=== PATIENT | male | born 1975 | race Caucasian/White ===

== ENCOUNTER 2017-05-14 20:28 | Emergency (ER) | payer MEDICAID, SELFPAY | END 2017-05-14 22:04 | disposition home or self-care (01) | LOC: ERS 20:28 | DX: J11.1 Influenza due to unidentified influenza virus with other respiratory manifestations (principal); F17.210 Nicotine dependence, cigarettes, uncomplicated | CPT/HCPCS: 99283 ==

== ENCOUNTER 2018-05-17 14:25 | Emergency (ER) | payer MEDICAID, OTHER ==
[2018-05-17 14:59] LABS: Bilirubin Negative (Negative); Blood, Urine Negative (Negative); Clarity CLEAR (Clear); Glucose, Urine (Dipstick) Negative (Negative); Leukocyte Negative (Negative); Nitrite Negative (Negative); Protein, Urine (Dipstick) Negative (Neg-Trace); Specific Gravity, Urine 1.018 (1.002-1.036); Urobilinogen 0.2 mg/dL (0.2-1.0); pH, Urine 6.5 (5.0-9.0)
[2018-05-17 14:59] LABS: #Basophils 0.1 thou/uL (0.0-0.2); #Eosinphils 0.2 thou/uL (0.0-0.7); #Lymphocytes 3.3 thou/uL (1.20-3.40); #Monocytes 0.9 thou/uL (0.11-0.59); #Neutrophils 4.3 thou/uL (1.40-6.50); %Basophils 1.3 % (0.0-1.0); %Eosinophils 2.5 % (0.0-10.0); %Lymphocytes 36.9 % (21.0-51.0); %Monocytes 10.4 % (0.0-10.0); %Neutrophils 48.9 % (42.0-75.0); Hemoglobin 16.6 g/dL (14.0-18.0); Mean Corpuscular Hemoglobin 30.7 pg (27.0-31.0); Mean Platelet Volume 9.6 fL (7.4-10.4); Platelet Count 168 thou/uL (130-400); RBC Distribution Width 12.4 % (11.5-14.5); White Blood Cell (WBC) Count 8.9 thou/uL (4.8-10.8)
[2018-05-17 15:08] LABS: Amphetamine Detected (NotDetected); Barbiturates Screen Not Detected (NotDetected); Benzodiazepine Screen Not Detected (NotDetected); Cocaine Metabolite Screen Not Detected (NotDetected); Medtox Control Line Valid? VALID (VALID); Medtox Reader # READER 4; Methadone Not Detected (NotDetected); Methamphetamine Not Detected (NotDetected); Opiate Screen Not Detected (NotDetected); Oxycodone Screen Not Detected (NotDetected); Phencyclidine (PCP) Not Detected (NotDetected); THC/Cannabinoid Screen Not Detected (NotDetected); Tricyclic Screen Not Detected (NotDetected)
[2018-05-17 15:19] LABS: ALT (SGPT) 27 U/L (8-55); AST (SGOT) 23 U/L (5-34); Acetaminophen Less than 6.0 mcg/mL (10.0-30.0); Albumin 4.5 g/dL (3.5-5.0); Alcohol Less than 10 mg/dL (Less than 10); Alkaline Phosphatase 65 U/L (40-150); Anion Gap 13 mmol/L (10-20); BUN (Urea Nitrogen) 11 mg/dL (8.9-20.6); Bilirubin, Total 0.2 mg/dL (0.2-1.2); CK (CPK) 211 U/L (30-200); Calc. Creatinine Clearance 0 mL/min (70-130); Calcium 9.5 mg/dL (7.8-10.44); Carbon Dioxide 27 mmol/L (22-29); Chloride 104 mmol/L (98-107); Estimated GFR-MDRD 64; Globulin 2.7 g/dL (2.4-3.5); Glucose 91 mg/dL (70-105); Protein, Total 7.2 g/dL (6.0-8.3); Salicylate Less than 8.0 mg/dL (15.0-30.0); Sodium 140 mmol/L (136-145)
[2018-05-17] MEDS ORDERED: hydrOXYzine 25 MG TAB ONE (18:46)
== END 2018-05-17 18:51 | disposition home or self-care (01) ==
LOC: ERS 14:25
DX: F43.9 Reaction to severe stress, unspecified (principal); F17.210 Nicotine dependence, cigarettes, uncomplicated
CPT/HCPCS: 36415; 80053; 80306; 80307; 81003; 82550; 84443; 85025; 93005

== ENCOUNTER 2019-06-22 13:01 | Emergency (ER) | payer OTHER, SELFPAY ==
[2019-06-22 13:36] LABS: #Eosinphils 0.1 thou/uL (0.0-0.7); #Lymphocytes 1.9 thou/uL (1.20-3.40); #Monocytes 1.1 thou/uL (0.11-0.59); #Neutrophils 6.9 thou/uL (1.40-6.50); %Basophils 0.1 % (0.0-1.0); %Eosinophils 1.1 % (0.0-10.0); %Lymphocytes 19.2 % (21.0-51.0); %Monocytes 11.2 % (0.0-10.0); %Neutrophils 68.4 % (42.0-75.0); Hemoglobin 15.4 g/dL (14.0-18.0); Mean Corpuscular HGB CONC 33.7 g/dL (32.0-36.0); Mean Corpuscular Volume 91.9 fL (78.0-98.0); Mean Platelet Volume 9.4 fL (7.4-10.4); Platelet Count 208 thou/uL (130-400); RBC Distribution Width 12.9 % (11.5-14.5); Red Blood Cell (RBC) Count 4.98 mill/uL (4.70-6.10)
[2019-06-22 13:59] LABS: ALT (SGPT) 36 U/L (8-55); AST (SGOT) 20 U/L (5-34); Alkaline Phosphatase 84 U/L (40-110); Anion Gap 13 mmol/L (10-20); BUN (Urea Nitrogen) 12 mg/dL (8.9-20.6); Bilirubin, Total 0.3 mg/dL (0.2-1.2); Calc. Creatinine Clearance 0 mL/min (70-130); Calcium 9.3 mg/dL (7.8-10.44); Carbon Dioxide 24 mmol/L (22-29); Chloride 104 mmol/L (98-107); Estimated GFR-MDRD 70; Glucose 222 mg/dL (70-105); Potassium 3.6 mmol/L (3.5-5.1); Sodium 137 mmol/L (136-145)
[2019-06-22 14:57] LABS: Bacteria/HPF 3+ HPF (None Seen); Bilirubin Negative (Negative); Blood, Urine 3+ (Negative); Clarity Turbid (Clear); Glucose, Urine (Dipstick) Greater than 1000 mg/dL (Negative); Leukocyte 25 Leu/uL (Negative); Nitrite Negative (Negative); Protein, Urine (Dipstick) 50 mg/dL (Neg-Trace); RBC/HPF Greater than 50 HPF (0-3); Squamous Epithelial None Seen HPF (0-3); Urobilinogen 3 mg/dL (Less than 2); WBC/HPF 0-3 HPF (0-3)
[2019-06-22] MEDS ORDERED: Ketorolac Tromethamine 30 MG/ML VIAL ONE (15:13)
[2019-06-22] MEDS ORDERED: Fentanyl 100 MCG/2 ML VIAL ONE (15:13)
--- NOTE | 2019-06-22 15:25 | CT ---
CT ABDOMEN AND PELVIS WITHOUT CONTRAST: HISTORY: Left flank pain. FINDINGS: Absence of oral and IV contrast reduces the sensitive of the exam, particularly for evaluation of master id organs involved. There are mild atelectatic changes in the left lung base. No free air or free f luid is seen in the abdomen or pelvis. Appendix is normal. No calcified gallstones are seen. There are vascular calcifications without evidence of aneurysmal dilatation of the abdominal aorta. There is a tiny calculus in the inferior pole of the right kidney. No calculi are seen in the left k [place] or the right ureter. There is a 10 mm calculus at the left UVJ with ipsilateral mild to modera te hydroureteral nephrosis. There is no falling of the calculus into the urinary bladder on prone im ages. There are degenerative changes in the spine. IMPRESSION: 1. Nonobstructing tiny right renal calculus. 2. Left-sided obstructive uropathy due to a 3 mm ureterovesical junction calculus. POS: OFF
== END 2019-06-22 16:02 | disposition home or self-care (01) ==
LOC: ERS 13:01
DX: N13.2 Hydronephrosis with renal and ureteral calculous obstruction (principal); F17.210 Nicotine dependence, cigarettes, uncomplicated
CPT/HCPCS: 36415; 74176; 80053; 81003; 81015; 83690; 85025; 87077; 87086; 87186; 87804; 96361; 96374; 96375; J1885; J3010

== ENCOUNTER 2019-06-23 22:42 | Inpatient (IN) | payer SELFPAY ==
[2019-06-24] MEDS ORDERED: cefTRIAXone\\ROCEPHIN 2 GM VIAL ONE (00:34)
[2019-06-24] MEDS ORDERED: Ketorolac Tromethamine 30 MG/ML VIAL ONE (00:34)
[2019-06-24] MEDS ORDERED: Ondansetron PF 4 MG/2 ML Vial ONE (00:34)
[2019-06-24 00:46] LABS: #Lymphocytes 1.2 thou/uL (1.20-3.40); #Monocytes 1.8 thou/uL (0.11-0.59); #Neutrophils 14.1 thou/uL (1.40-6.50); %Basophils 0.3 % (0.0-1.0); %Eosinophils 0.1 % (0.0-10.0); %Monocytes 10.6 % (0.0-10.0); %Neutrophils 82.1 % (42.0-75.0); Hemoglobin 14.4 g/dL (14.0-18.0); Mean Corpuscular HGB CONC 33.6 g/dL (32.0-36.0); Mean Corpuscular Hemoglobin 30.9 pg (27.0-31.0); Mean Corpuscular Volume 91.9 fL (78.0-98.0); Mean Platelet Volume 8.6 fL (7.4-10.4); Platelet Count 173 thou/uL (130-400); RBC Distribution Width 13.1 % (11.5-14.5); Red Blood Cell (RBC) Count 4.65 mill/uL (4.70-6.10); White Blood Cell (WBC) Count 17.1 thou/uL (4.8-10.8)
[2019-06-24 01:06] LABS: ALT (SGPT) 46 U/L (8-55); AST (SGOT) 27 U/L (5-34); Albumin 3.7 g/dL (3.5-5.0); Alkaline Phosphatase 113 U/L (40-110); Anion Gap 15 mmol/L (10-20); BUN (Urea Nitrogen) 12 mg/dL (8.9-20.6); Bilirubin, Total 1.3 mg/dL (0.2-1.2); Calc. Creatinine Clearance 0 mL/min (70-130); Calcium 9.2 mg/dL (7.8-10.44); Carbon Dioxide 24 mmol/L (22-29); Chloride 98 mmol/L (98-107); Estimated GFR-MDRD 76; Glucose 130 mg/dL (70-105); Potassium 3.5 mmol/L (3.5-5.1); Protein, Total 6.7 g/dL (6.0-8.3); Sodium 133 mmol/L (136-145)
[2019-06-24 01:15] LABS: Bacteria/HPF 2+ HPF (None Seen); Bilirubin Negative (Negative); Blood, Urine 2+ (Negative); Clarity Turbid (Clear); Glucose, Urine (Dipstick) Normal (Negative); Leukocyte 500 Leu/uL (Negative); Nitrite Negative (Negative); Protein, Urine (Dipstick) 30 mg/dL (Neg-Trace); Squamous Epithelial 0-3 HPF (0-3); Urobilinogen 12 mg/dL (Less than 2); WBC/HPF Greater than 50 HPF (0-3)
[2019-06-24] MEDS ORDERED: Acetaminophen 500 MG TAB ONE (02:26)
--- NOTE | 2019-06-24 06:44 | CT ---
PRELIMINARY REPORT/[facility]/EMERGENCY AFTER HOURS PROCEDURE: EXAM: CT Abdomen and Pelvis Without Intravenous Contrast CLINICAL HISTORY: [id number] presents to the ER with c/o possible medication reaction today. Pt reports he took a tylenol 3 to night and then had shaking and fever. Pt reports he has had fever since but today he had fev er at 104, chills, shaking, and [place]. Denies vomiting, left flank pain today, diarrhea, or h/o kidney s tones prior to today. 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 COMPARISON: None provided. FINDINGS: LUNG BASES: Dependent hypoventilatory changes and linear atelectasis/scarring in the visualized lung bases. Age-indeterminate moderate elevation of the left hemidiaphragm. LIVER: Enlarged. Steatosis. GALLBLADDER AND BILE DUCTS: No calcified gallstone. No biliary ductal dilation. PANCREAS: Unremarkable. SPLEEN: Enlarged. ADRENAL GLANDS: Mild fullness of the left adrenal gland, possibly reflecting hyperplasia. KIDNEYS, URETERS, AND BLADDER: Mild left hydronephrosis with perinephric stranding/edema. No obstruct ing right opaque renal calculus is seen. Nonspecific left upper pole cortical defect and calcificatio n, possibly sequela of prior infection/infarct. Moderate urinary bladder wall thickening. No right hy dronephrosis. Tiny nonobstructing right renal calculus. STOMACH AND BOWEL: No evidence of bowel obstruction. Mild fecal retention. APPENDIX: Normal appendix. PERITONEUM: No free air or sizable fluid collection. LYMPH NODES: Numerous nonspecific top normal size mesenteric lymph nodes, possibly reactive in etiolo gy. VASCULATURE: Mild aortoiliac atherosclerotic calcifications. ABDOMINAL WALL AND SOFT TISSUES: Small fat-containing inguinal hernias. BONES: Advanced thoracolumbar spondylosis. IMPRESSION: 1. Mild left hydronephrosis, left perinephric stranding, and moderate urinary bladder wall thickening , suspicious for acute pyelonephritis. No perinephric abscess. 2. Mild nonobstructing right nephrolithiasis. 3. Age-indeterminate moderate elevation of the left hemidiaphragm. 4. Hepatosplenomegaly. ELECTRONICALLY SIGNED BY: Mick Alfaro MD Jun 24, 2019 1:59:05 AM [facility] This report is intended for review by the ordering physician only, in accordance of law. If you recei ve this report in error, please call [facility] at [phone]. FINAL REPORT EMERGENCY AFTER HOURS CT ABDOMEN AND PELVIS WITHOUT CONTRAST: Date: 06/24/2019 FINDINGS/IMPRESSION: I agree with the findings and impression given in the preliminary report per [facility] physici an. There is stranding change surrounding the left kidney and ureter. This could be secondary to a recent ly passed stone or ascending urinary tract infection.
[2019-06-24] MEDS ORDERED: Acetaminophen 325 MG TAB PO PRN ×2 (12:39→13:32)
[2019-06-24 13:05] VITALS: BMI 31.5
[2019-06-24] MEDS ORDERED: Ondansetron PF 4 MG/2 ML Vial IVP PRN (13:31)
[2019-06-24] MEDS ORDERED: HYDROcodone/Acetaminophen 5/325 mg Tablet PO PRN ×2 (13:32→13:33)
[2019-06-24] MEDS ORDERED: Ondansetron ODT 4 MG TAB PO PRN (13:32)
[2019-06-24] MEDS ORDERED: Sodium Chloride 0.9% 1,000 ML IV SCH (13:45)
--- NOTE | 2019-06-24 16:17 | PDOC.HHP ---
Hospitalist HPI - History of Present Illness fever History of Present Illness: This is a 43 year old male with no past medical history who presented to the ER with fever. The patient states Saturday he came to the ER due to severe abdominal pain. He had a CT abdomen which showed left sided obstructive uropathy due to 3 mm ureterovesical junction calculus. He was discharged home. The patient states he went home and passed a kidney stone. Since then his pain has resolved but he has continued to have temperatures up to 104 since then. He reports rigors and chills. He denies nausea, vomiting, constipation, diarrhea, or dysuria. He also complains of severe headache that is relieved with narcotics, worsened by light, but no associated blurred vision or nausea. He reports decreased appetite and night sweats Patient denies cough, reports shortness of breath that started today. He has no chest pain, orthopnea, runy nose, sore throat, or ear aches. He denies recent travel. He reports history of mediastinal mass that was removed in the past that was non-cancerous. He does have family history of leukemia. ED Course: The patient presented to the ER with temp of 100.4, HR 111. Rest of vitals were normal. He had CT abdomen that showed mild left hydronephrosis suspicious for acute pyelonephritis and nonobstructing right nephrolithiasis. He was also noted to have hepatosplenomegaly. The patient was given IV fluids, zofran, toradol, IV ceftriaxone 2 grams and admitted for further workup. Patient requested to be admitted by SOUND provider rather than PCP Hospitalist ROS - Review of Systems Constitutional: reports: fever, chills ENT: denies: ear pain, ear discharge Respiratory: reports: shortness of breath. denies: cough, dry Cardiovascular: denies: chest pain, palpitations, orthopnea Gastrointestinal: denies: nausea, vomiting, abdominal pain, diarrhea, constipation Genitourinary: denies: dysuria, frequency, incontinence Musculoskeletal: denies: neck pain, shoulder pain Skin: denies: rash Hospitalist History - Past Medical History Source: patient Other Medical History: History of mediastinal mass that was noncancerous - Past Surgical History Other Surgical History: Mediastinal mass removed in 2007 - Family History Other Family History: Diabetes, heart disease , mom had leukemia in remission - Social History Smoking Status: Current every day smoker (smoked 1 pack a day since 16) Alcohol: reports: None Drugs: reports: none - Exam General Appearance: NAD, awake alert Eye: PERRL, anicteric sclera ENT: normocephalic atraumatic, no oropharyngeal lesions Neck: supple, no JVD, no carotid bruit Heart: no murmur, no gallops, no rubs Respiratory: CTAB, no wheezes, no rales, no ronchi Gastrointestinal: soft, no guarding, no rigidity Gastrointestinal - other findings: Left CVA tenderness Extremities: no cyanosis, no clubbing, no edema Skin: normal turgor, no lesions, no rashes Neurological: cranial nerve grossly intact, normal sensation to touch, no focal deficits, no new deficit Hospitalist Results - Labs Result Diagrams: 06/24/19 00:30 06/24/19 00:30 Lab results: WBC 17.1 thou/uL (4.8-10.8) H 06/24/19 00:30 Hgb 14.4 g/dL (14.0-18.0) 06/24/19 00:30 Hct 42.7 % (42.0-52.0) 06/24/19 00:30 MCV 91.9 fL (78.0-98.0) 06/24/19 00:30 Plt Count 173 thou/uL (130-400) 06/24/19 00:30 Neutrophils % 82.1 % (42.0-75.0) H 06/24/19 00:30 Sodium 133 mmol/L (136-145) L 06/24/19 00:30 Potassium 3.5 mmol/L (3.5-5.1) 06/24/19 00:30 Chloride 98 mmol/L (98-107) 06/24/19 00:30 Carbon Dioxide 24 mmol/L (22-29) 06/24/19 00:30 BUN 12 mg/dL (8.9-20.6) 06/24/19 00:30 Creatinine 1.06 mg/dL (0.7-1.3) 06/24/19 00:30 Glucose 130 mg/dL (70-105) H 06/24/19 00:30 Lactic Acid 1.5 mmol/L (0.5-2.2) 06/24/19 00:30 Calcium 9.2 mg/dL (7.8-10.44) 06/24/19 00:30 Total Bilirubin 1.3 mg/dL (0.2-1.2) H 06/24/19 00:30 AST 27 U/L (5-34) 06/24/19 00:30 ALT 46 U/L (8-55) 06/24/19 00:30 Alkaline Phosphatase 113 U/L (40-110) H 06/24/19 00:30 Serum Total Protein 6.7 g/dL (6.0-8.3) 06/24/19 00:30 Albumin 3.7 g/dL (3.5-5.0) 06/24/19 00:30 Urine Ketones Negative mg/dL (Negative) 06/24/19 00:55 Urine Blood 2+ (Negative) A 06/24/19 00:55 Urine Nitrite Negative (Negative) 06/24/19 00:55 Ur Leukocyte Esterase 500 Cheryl/uL (Negative) A 06/24/19 00:55 Urine RBC 11-20 HPF (0-3) A 06/24/19 00:55 Urine WBC Greater than 50 HPF (0-3) A 06/24/19 00:55 Ur Squamous Epith Cells 0-3 HPF (0-3) 06/24/19 00:55 Urine Bacteria 2+ HPF (None Seen) A 06/24/19 00:55 Hospitalist H&P A/P - Plan Plan: CT chest: parenchymal density left lung base, atelectasis vs pneumonia. [address] abdomen: mild left hydronephrosis, left perinephric stranding and mdoerate urinary bladder wall thickening suspicious for acute pyelonephritis. Mild nonobstructing right nephrolithiasis. Moderate elevation of left hemidiaphragm. Hepatosplenomegaly This is a 43 year old male who presented with recent kidney stone who has had persistent fever after passing kidney stone, admitted for sepsis Sepsis secondary to pyelonephritis - had fever of 104, WBC of 17. S/p blood cultures, send urine culture as well - start IV ceftriaxone - continue IV fluids Pulmonary nodule - [address] chest[address] Repeat CT in 8-12 months Code status: full code
--- NOTE | 2019-06-24 18:11 | CT ---
CT CHEST WITHOUT CONTRAST CLINICAL INDICATION: Fever and shortness of breath. History of mediastinal mass. COMPARISON: CT abdomen on 06/24/2019 at 0101 hours FINDINGS: Aorta: Limited secondary to the lack of intravenous contrast, but the thoracic aorta is normal in [place]. Lungs: There is a subpleural 8 mm pulmonary nodule posterior right upper lobe. No additional discrete pulmonary nodule or mass is seen. There has been interval increase in patchy parenchymal changes at the left lung base compared to the CT abdomen obtained earlier on today's date. Findings may be at tributable to greater degree of volume loss or developing pneumonia left lung base. Again noted is elevation of the left hemidiaphragm. A tiny left pleural effusion is now present. Mediastinum: Surgical clip is seen in the anterior superior mediastinum with median sternotomy wires identified. A mediastinal mass is not appreciated on this nonenhanced CT exam. Limited evaluation for lymphadenopathy due to the lack of intravenous contrast. However, no definitive enlarged lymph no de is seen. Thyroid gland: Grossly normal nonenhanced CT appearance where visualized. Osseous structures: Degenerative changes are seen in the spine. Slight S-shaped curvature of thoracic spine is present. Chest wall: Minimal chronic mass tube. Upper abdomen: Mild perinephric stranding is seen involving the superior pole left kidney. This was s een on recent CT abdomen. IMPRESSION: 1. Interval increase in parenchymal density at the left lung base which may be related to increase in atelectasis. Developing pneumonia is also a differential consideration, and continued follow-up is recommended. Ti ny left pleural effusion is also now present. 2. Approximately 8 mm pulmonary nodule posterior right upper lobe. Follow-up CT thorax in 6-12 months is recommended. 3. Postsurgical changes related to median sternotomy with surgical clip seen anterior superior medias tinum. Lack of intravenous contrast limits evaluation of mediastinal structures, but no obvious mediastinal mass is appreciated on this exam. 4. Partial visualization of left perinephric stranding better visualized on CT abdomen.
[2019-06-24] MEDS: HYDROcodone/Acetaminophen 5/325 mg Tablet PO PRN (21:08)
[2019-06-24] MEDS: Naproxen 500 MG TAB PO SCH (21:13)
[2019-06-24] MEDS: Sodium Chloride 0.9% 1,000 ML IV SCH (21:23)
[2019-06-25] MEDS ORDERED: cefTRIAXone\\ROCEPHIN 1 GM in Sodium Chloride 0.9% 100 ML IVPB SCH (01:00)
[2019-06-25] MEDS: HYDROcodone/Acetaminophen 5/325 mg Tablet PO PRN ×3 (04:06→20:20)
[2019-06-25] MEDS: Ketorolac Tromethamine 30 MG/ML VIAL IVP PRN (05:25)
[2019-06-25] MEDS: Sodium Chloride 0.9% 1,000 ML IV SCH (08:10)
[2019-06-25] MEDS: Naproxen 500 MG TAB PO SCH ×2 (08:10→20:20)
[2019-06-25] MEDS ORDERED: FLU VACC QS2019-20(6MOS UP)/PF 60 MCG/0.5 ML SYRINGE IM ONE (09:00)
[2019-06-25] MEDS ORDERED: SUMAtriptan Succinate 25 MG TAB PO SCH (13:30)
[2019-06-25 13:43] LABS: #Lymphocytes 1.3 thou/uL (1.20-3.40); #Monocytes 1.1 thou/uL (0.11-0.59); #Neutrophils 8.3 thou/uL (1.40-6.50); %Basophils 0.2 % (0.0-1.0); %Eosinophils 0.4 % (0.0-10.0); %Lymphocytes 11.8 % (21.0-51.0); %Monocytes 10.5 % (0.0-10.0); %Neutrophils 77.1 % (42.0-75.0); Hemoglobin 12.9 g/dL (14.0-18.0); Mean Corpuscular HGB CONC 33.1 g/dL (32.0-36.0); Mean Corpuscular Hemoglobin 30.6 pg (27.0-31.0); Mean Corpuscular Volume 92.2 fL (78.0-98.0); Mean Platelet Volume 8.6 fL (7.4-10.4); Platelet Count 163 thou/uL (130-400); RBC Distribution Width 13.2 % (11.5-14.5); Red Blood Cell (RBC) Count 4.23 mill/uL (4.70-6.10); White Blood Cell (WBC) Count 10.8 thou/uL (4.8-10.8)
[2019-06-25 14:30] LABS: ALT (SGPT) 29 U/L (8-55); AST (SGOT) 16 U/L (5-34); Alkaline Phosphatase 106 U/L (40-110); Anion Gap 13 mmol/L (10-20); BUN (Urea Nitrogen) 17 mg/dL (8.9-20.6); Bilirubin, Total 0.8 mg/dL (0.2-1.2); Calc. Creatinine Clearance 151 mL/min (70-130); Calcium 8.3 mg/dL (7.8-10.44); Carbon Dioxide 22 mmol/L (22-29); Chloride 103 mmol/L (98-107); Estimated GFR-MDRD Greater than 90; Globulin 2.7 g/dL (2.4-3.5); Glucose 191 mg/dL (70-105); Potassium 3.5 mmol/L (3.5-5.1); Protein, Total 5.7 g/dL (6.0-8.3); Sodium 134 mmol/L (136-145)
--- NOTE | 2019-06-25 16:19 | PDOC.HOSPP ---
- Subjective Encounter Date: 06/25/19 Encounter Time: 12:30 Subjective: Patient had fever of 104 this am per . Patient continues to complain of headache. Reports relief with narcotics. No neck stiffness or rigidity. No abdominal pain or dysuria. No shortness of breath - Objective Vital Signs & Weight: Vital Signs (12 hours) Temp Pulse Resp BP Pulse Ox 06/25/19 08:00 94 L 06/25/19 07:21 98.3 F 76 16 115/75 94 L 06/25/19 05:00 99.2 F 100 18 106/67 94 L Weight Weight 220 lb I&O: 06/24/19 06/25/19 06/26/19 06:59 06:59 06:59 Intake Total 2560 480 Balance 2560 480 Result Diagrams: 06/25/19 13:28 06/25/19 13:28 Hospitalist ROS - Review of Systems Constitutional: reports: fever. denies: chills Respiratory: denies: cough, dry, shortness of breath - Medication Medications: Active Medications Generic Name Dose Route Start Last Admin Trade Name Freq PRN Reason Stop Dose Admin Acetaminophen 650 mg 06/24/19 12:39 06/24/19 20:05 Tylenol PO 650 mg Q6H PRN Administration Fever/Mild Pain Hydrocodone Bitart/Acetaminophen 1 tab 06/24/19 20:21 06/24/19 21:08 Felicity 5/325 PO 1 tab Q4H PRN Administration Mild-Moderate Pain (1-5) Hydrocodone Bitart/Acetaminophen 2 tab 06/24/19 20:21 06/25/19 10:39 Felicity 5/325 PO 2 tab Q4H PRN Administration Moderate to Severe Pain (6-10) Ceftriaxone Sodium 1 gm/ 100 mls @ 200 mls/hr 06/25/19 01:00 06/25/19 00:26 Sodium Chloride IVPB 100 mls Q24HR HUI Administration Sodium Chloride 1,000 mls @ 100 mls/hr 06/24/19 21:15 06/25/19 08:10 Normal Saline 0.9% IV 1,000 mls .Q10H HUI Administration Ketorolac Tromethamine 15 mg 06/24/19 21:03 06/25/19 05:25 Toradol IVP 06/29/19 21:04 15 mg Q6H PRN Administration Pain Naproxen 500 mg 06/24/19 21:00 06/25/19 08:10 Naprosyn PO 500 mg BID HUI Administration Sodium Chloride 10 ml 06/24/19 21:00 06/25/19 08:19 Flush - Normal Saline IVF Not Given Q12HR HUI - Exam General Appearance: NAD, awake alert General - other findings: obese Eye: PERRL, anicteric sclera ENT: normocephalic atraumatic, no oropharyngeal lesions Neck: no JVD Heart: RRR, no murmur, no gallops, no rubs Respiratory: CTAB, no wheezes, no rales, no ronchi Gastrointestinal: soft, non-tender, non-distended, normal bowel sounds Gastrointestinal - other findings: no CVA tenderness Extremities: no cyanosis, no clubbing, no edema Skin: normal turgor, no lesions, no rashes Neurological: cranial nerve grossly intact, normal sensation to touch, no focal deficits, no new deficit Hosp A/P - Plan CT chest: parenchymal density left lung base, atelectasis vs pneumonia. [address] abdomen: mild left hydronephrosis, left perinephric stranding and mdoerate urinary bladder wall thickening suspicious for acute pyelonephritis. Mild nonobstructing right nephrolithiasis. Moderate elevation of left hemidiaphragm. Hepatosplenomegaly This is a 43 year old male who presented with recent kidney stone who has had persistent fever after passing kidney stone, admitted for sepsis Sepsis secondary to pyelonephritis - had fever of 104, WBC of 17. Repeat WBC down to 10.8. S/p blood cultures, urine culture normal but likely false negative - will switch ceftriaxone to cefdinir - continue IV fluids Pulmonary nodule - [address] chest[address] Repeat CT in 8-12 months Anemia - Hb 12.9. Recheck in am., likely dilutional Hyponatremia - sodium 134, mild Code status: full code
[2019-06-25] MEDS: Cefdinir 300 MG CAP PO SCH (20:19)
[2019-06-26] MEDS: HYDROcodone/Acetaminophen 5/325 mg Tablet PO PRN (02:47)
[2019-06-26] MEDS: Ketorolac Tromethamine 30 MG/ML VIAL IVP PRN (02:47)
[2019-06-26] MEDS: Naproxen 500 MG TAB PO SCH (09:55)
[2019-06-26] MEDS: Cefdinir 300 MG CAP PO SCH (09:55)
[2019-06-26 11:43] LABS: Hemoglobin 12.8 g/dL (14.0-18.0); Mean Corpuscular HGB CONC 33.2 g/dL (32.0-36.0); Mean Corpuscular Hemoglobin 30.9 pg (27.0-31.0); Mean Corpuscular Volume 93.1 fL (78.0-98.0); Mean Platelet Volume 8.5 fL (7.4-10.4); Platelet Count 206 thou/uL (130-400); RBC Distribution Width 13.5 % (11.5-14.5); Red Blood Cell (RBC) Count 4.16 mill/uL (4.70-6.10); White Blood Cell (WBC) Count 9.3 thou/uL (4.8-10.8)
[2019-06-26 14:06] VITALS: BP 100/60; TEMP 97.7
--- NOTE | 2019-06-27 12:22 | EKG ---
Test Reason : Blood Pressure : / mmHG Vent. Rate : 095 BPM Atrial Rate : 095 BPM P-R Int : 088 ms QRS Dur : 084 ms QT Int : 338 ms P-R-T Axes : 018 017 008 degrees QTc Int : 424 ms Sinus rhythm with short MT Otherwise normal ECG Confirmed by MYA BARRERA ([id number]), editor newspaper LORENA RIOS ([id number]) on 06/27/2019 12:22:10 PM Referred By: Confirmed By:MYA BARRERA
--- NOTE | 2019-06-28 03:16 | DIS ---
DATE OF ADMISSION: 06/24/2019 DATE OF DISCHARGE: 06/26/2019 DISCHARGE DIAGNOSES: Sepsis secondary to pyelonephritis, pulmonary nodule, anemia, hyponatremia, and 8 mm pulmonary nodule. CONSULTATIONS: None. PROCEDURES: None. BRIEF HISTORY OF PRESENT ILLNESS: This is a 43-year-old male with a past medical history of a mediastinal mass that was resected, who had presented to the emergency room with persistent fevers. The patient had gone to the ER 2 days prior and was diagnosed with a kidney stone. The patient went home and passed a kidney stone, however, had persistent fevers up to 104, associated with rigors, chills, and headaches. Upon arrival to the emergency room, the patient had temperature of 100.4, heart rate of 111. CT scan of his abdomen showed mild left hydronephrosis. The patient was given IV ceftriaxone and was admitted. HOSPITAL COURSE: Sepsis secondary to pyelonephritis: The patient had blood cultures which were negative. Influenza panel was negative. CT scan of the abdomen showed mild left hydronephrosis and moderate urinary bladder wall thickening suspicious for acute pyelonephritis. He also had a nonobstructing right nephrolithiasis. The patient was treated with IV ceftriaxone with improvement in his fevers. Unfortunately, urine culture was not sent in the ER. By the time it was sent, his urine culture was normal. He was discharged with cefdinir for an additional 5 days to complete a 7-day course of antibiotics. He should follow up with his PCP in a week. The patient also had a CT scan of his chest given history of mediastinal mass in the past and the patient's reported complaints of night sweats. This showed no evidence of a mass, but an incidental 8 mm pulmonary nodule. The patient should have a CT scan of his chest in 6 to 12 months. Tobacco abuse: The patient reports actively smoking. However, he refused nicotine on discharge because the patient felt that he did not have any cravings after being in the hospital. Anemia: The patient had a hemoglobin of 12.8 on the day of discharge. He was advised to follow up with the PCP and work up his anemia further. DISCHARGE PHYSICAL EXAMINATION: VITAL SIGNS: Temperature 97.7, heart rate 86, respiratory rate 16, O2 saturation 97% on room air, blood pressure 100/60. GENERAL: The patient is obese. He is in no acute distress. CVS: Regular rate and rhythm with no murmurs, rubs, or gallops. LUNGS: Clear to auscultation bilaterally. ABDOMEN: Positive bowel sounds, soft, nontender, nondistended. EXTREMITIES: No edema. PERTINENT LABORATORY DATA: CBC on 06/25; white count 9.3, hemoglobin 12.8, hematocrit 38.7, platelets 206. BMP on 06/24: shows sodium of 134. LFTs on 06/24:were normal. UA on 06/23: shows turbid urine with 30 protein, 2+ blood, 500 leukocyte esterase, greater than 50 white blood cells. Blood culture: no growth at 48 hours. Influenza panel: negative. Urine culture: no growth. IMAGING STUDIES: CT of abdomen and pelvis on 06/23: mild fullness of the left adrenal gland, possibly reflecting hyperplasia. Mild left hydronephrosis with perinephric stranding. Moderate urinary bladder wall thickening. Mild fecal retention. Hepatosplenomegaly. Chest CT on 06/23: 8 mm pulmonary nodule in the posterior right upper lobe. Followup CT thorax in 6-12 months is recommended. Interval increase in parenchymal density to the left lung base, which may be related to increase in atelectasis. Developing pneumonia is also differential, this is consideration. Tiny left pleural effusion is now present. There is no evidence of a mediastinal mass. DISCHARGE CONDITION: Stable. ACTIVITY: As tolerated. DIET: Heart healthy diet. DISCHARGE MEDICATIONS: New prescriptions: Omnicef 300 mg p.o. b.i.d. DISCHARGE INSTRUCTIONS: The patient should follow up with his PCP in a week. He should have a repeat CT scan of his chest done in 6 to 12 months. He should also have a repeat CBC to follow up his anemia. Job ID: [id number] [facility]
--- NOTE | 2019-06-29 03:33 | PQF ---
Rashard RIOS [place] SARAH DOUGLASS [id number] CLINICAL DOCUMENTATION CLARIFICATION FORM: POST DISCHARGE Addendum to original discharge summary date: ____ Late entry note date: __ DATE: 06/29/2019 ATTN: Sarah Douglass Please exercise your independent, professional judgment in responding to the clarification form. Clinical indicators are provided on the bottom of this form for your review Please check appropriate box(s): [ ] Pneumonia clinically significant [ ] Pneumonia not clinically significant [ ] Other diagnosis [X ] Unable to determine - possible but not enough symptoms to call it that. No cough and no hypoxia In addition, please specify: Present on Admission (POA): [ ] Yes [ ] No [ ] Unable to determine For continuity of documentation, please document condition throughout progress notes and discharge summary. Thank You. CLINICAL INDICATORS - SIGNS / SYMPTOMS / LABS DS 06/25 "Chest CT:developing pneumonia is also differential, this ic consideration" DS 06/25 "Left pleural effusion is now present" HP 06/22 "CT chest:parenchymal density left lung base, atelectasis vs PNA,8mm pulmonary nodule" ED Notes 06/22 "he had fever at 104" HP 06/22 "reports shortness of breath" Labs WBC: 06/23=17.1 06/24=10.8 06/25=9.3 RISK FACTORS ED Notes 06/22-43 years old male ED Notes 06/22-Smoker HP 06/22-Sepsis HP 06/22-Pulmonary nodule HP 06/22-Atelectasis TREATMENTS: CT of Chest-Collected 06/23 Rocephin 2gm IV-JUN 22 Laboratory Monitoring-Collected 06/23 (This form is maintained as a part of the permanent medical record) 2014 [employer]. All Rights Reserved [email or web address]
== END 2019-06-26 14:31 | disposition home or self-care (01) | DRG 872 ==
LOC: ERS 22:42 → ERHOLD 06-24 02:25 → T4-B 06-24 12:58 → UNDODISIN 06-26 13:01
PROVIDERS: ADMIT Internal Medicine; ATTEND Internal Medicine
DX: A41.9 Sepsis, unspecified organism (principal); Z23 Encounter for immunization; N13.6 Pyonephrosis; E87.1 Hypo-osmolality and hyponatremia; J98.11 Atelectasis; G43.909 Migraine, unspecified, not intractable, without status migrainosus; R16.2 Hepatomegaly with splenomegaly, not elsewhere classified; F17.200 Nicotine dependence, unspecified, uncomplicated; R91.1 Solitary pulmonary nodule; D64.9 Anemia, unspecified; Z88.1 Allergy status to other antibiotic agents; Z91.013 Allergy to seafood
CPT/HCPCS: 36415; 71250; 74176; 80053; 81003; 81015; 83605; 85025; 85027; 87040; 87086; 87804; 93005; 96361; 96365; 96375; J0696; J1885; J2405; J3490

== ENCOUNTER 2021-04-25 08:31 | Emergency (ER) | payer SELFPAY | END 2021-04-25 09:56 | disposition home or self-care (01) | LOC: ERS 08:31 | DX: R21 Rash and other nonspecific skin eruption (principal); F17.210 Nicotine dependence, cigarettes, uncomplicated | CPT/HCPCS: 99282 ==